=== PATIENT | male | born 1970 | race African-American/Black ===

== ENCOUNTER 2022-02-25 00:01 | Emergency (ER) | payer BC, OTHER ==
[2022-02-25 00:20] VITALS: BP 125/71; PULSE 75; RESP 18; TEMP 98.1; BMI 26.6
[2022-02-25] MEDS ORDERED: KETOROLAC TROMETHAMINE 30 MG/1 ML VIAL IM ONE (00:30)
== END 2022-02-25 02:07 | disposition home or self-care (01) ==
LOC: JER 00:01
DX: S86.011A Strain of right Achilles tendon, initial encounter (principal); Y99.8 Other external cause status
CPT/HCPCS: 73610-TC-RT-FY; 73630-TC-RT-FY; 99283-25